=== PATIENT | male | born 1955 | race Caucasian/White ===

== ENCOUNTER 2018-09-27 08:42 | Outpatient (REF) | payer MEDICARE, SELFPAY ==
[2018-09-27 20:54] LABS: HGB 15.3 g/dL (13.5-17.5); Mean Corp. HGB Concentration 34.8 g/dL (32.0-36.0); Mean Corpuscular Hemoglobin 31.2 pg (27.0-33.0); Mean Corpuscular Volume 89.8 fL (80-95); Mean Platelet Volume 10.6 fL (8.0-11.0); Platelet Count 228 x1000/uL (130-400); RBC Distribution Width 13.1 % (11.8-14.1); White Blood Cell Count 5.09 k/cumm (4.4-10.8)
[2018-09-27 21:07] LABS: ALT 32 U/L (12-78); AST 16 U/L (15-37); Alkaline Phosphatase 111 U/L (46-116); Anion Gap 9.4 mmol/L (3-11); BUN 24 mg/dL (7-18); Bilirubin, Total 0.3 mg/dL (0.2-1.0); CO2 26.6 mmol/L (21.0-32.0); CREATININE 0.74 mg/dL (0.70-1.30); Calcium 9.2 mg/dL (8.5-10.1); Chloride 105 mmol/L (98-107); Glucose 93 mg/dL (70-100); PHENOBARBITAL 21.7 ug/mL (15.0-40.0); PHENYTOIN (DILANTIN) 10.7 ug/mL (10.0-20.0); Potassium 4.6 mmol/L (3.5-5.1); Sodium 141 mmol/L (136-145); Total Protein 7.1 g/dL (6.4-8.2)
== END 2018-09-27 09:02 ==
LOC: NCHCN 08:42
PROVIDERS: PCP Internal Medicine; Visit Provider Internal Medicine
DX: J45.30 Mild persistent asthma, uncomplicated (principal); I10 Essential (primary) hypertension; L82.1 Other seborrheic keratosis; R56.9 Unspecified convulsions; Z51.81 Encounter for therapeutic drug level monitoring; Z79.899 Other long term (current) drug therapy
CPT/HCPCS: 80053; 85027; 80184; 80185

== ENCOUNTER 2020-05-08 08:57 | Outpatient (REF) | payer MEDICARE, SELFPAY ==
[2020-05-08 21:53] LABS: Anion Gap 6.8 mmol/L (3-11); BUN 18 mg/dL (7-18); CO2 30.2 mmol/L (21.0-32.0); CREATININE 0.74 mg/dL (0.70-1.30); Calcium 8.9 mg/dL (8.5-10.1); Calculated LDL 100 mg/dL (<100); Chloride 101 mmol/L (98-107); Cholesterol 180 mg/dL (<200); Glucose 80 mg/dL (74-106); HDL Cholesterol 49 mg/dL (40-60); Sodium 138 mmol/L (136-145); TSH 2.34 uIU/mL (0.36-3.74); Triglyceride 155 mg/dL (<150)
[2020-05-21 11:31] LABS: PSA, Diagnostic 1.6 ng/ml (0-4.5)
== END 2020-05-08 09:17 ==
LOC: NCHCN 08:57
PROVIDERS: PCP Internal Medicine; Visit Provider Internal Medicine
DX: R63.5 Abnormal weight gain (principal); I10 Essential (primary) hypertension; I44.7 Left bundle-branch block, unspecified; A00-B99 Certain infectious and parasitic diseases
CPT/HCPCS: 80048; 80061; 84153; 84443

== ENCOUNTER 2021-04-14 21:25 | Outpatient (REF) | payer MEDICARE, SELFPAY ==
[2021-04-14 21:03] LABS: Abs Immature Grans 0.03 10^3/uL (0.0-0.06); Absolute Basophil Count 0.03 10^3/uL (0.0-0.2); Absolute Eosinophil Count 0.14 10^3/uL (0.0-0.7); Absolute Lymphocyte Count 2.27 10^3/uL (1.2-3.4); Absolute Neutrophil Count 3.65 10^3/uL (1.2-6.7); Basophils % 0.5; Eosinophils % 2.1; HCT 42.1 % (40.0-50.0); HGB 14.6 g/dL (13.5-17.5); Immature Grans % 0.5; Lymphocytes % 34.3; MCH 31.5 pg (27.0-33.0); MCHC 34.7 % (32.0-36.0); MCV 90.7 fL (80-95); Monocytes % 7.6; Nucleated RBC 0 %; Platelet Count 217 10^3/uL (130-400); RBC 4.64 10^6/uL (4.36-5.78); RDW 13.2 % (11.8-14.1); RDW-SD 43.1 fL; WBC 6.62 10^3/uL (4.4-10.8)
[2021-04-14 22:30] LABS: PHENYTOIN (DILANTIN) 10.5 ug/mL (10.0-20.0)
[2021-04-15 01:32] LABS: Vitamin D 25 Total 31.7 ng/mL (30-100)
[2021-04-15 06:46] LABS: ALT 38 U/L (16-63); AST 18 U/L (15-37); Albumin 3.9 g/dL (3.4-5.0); Alkaline Phosphatase 98 U/L (46-116); Anion Gap 10.1 mmol/L (3-11); BUN 18 mg/dL (7-18); Bilirubin, Total 0.3 mg/dL (0.2-1.0); CO2 24.9 mmol/L (21.0-32.0); CREATININE 0.9 mg/dL (0.70-1.30); Calcium 8.7 mg/dL (8.5-10.1); Chloride 104 mmol/L (98-107); Glucose 155 mg/dL (74-106); PHENOBARBITAL 20.8 ug/mL (15.0-40.0); Sodium 139 mmol/L (136-145)
== END 2021-04-14 21:26 | disposition home or self-care (01) ==
LOC: NCHCN 21:25
PROVIDERS: PCP Internal Medicine; Visit Provider Internal Medicine
DX: I10 Essential (primary) hypertension (principal); R56.9 Unspecified convulsions; Z51.81 Encounter for therapeutic drug level monitoring
CPT/HCPCS: 80053; 82306; 80184; 80185; 85025

== ENCOUNTER 2022-07-20 15:08 | Outpatient (REF) | payer MEDICARE, SELFPAY ==
[2022-07-20 21:36] LABS: HGB 14.6 g/dL (13.5-17.5); MCH 32.2 pg (27.0-33.0); MCHC 35.6 % (32.0-36.0); MCV 91 fL (80-95); MPV 10.8 fL (8.0-11.0); Platelet Count 223 10^3/uL (130-400); RBC 4.53 10^6/uL (4.36-5.78); RDW 12.8 % (11.8-14.1); RDW-SD 42.1 fL; WBC 6.29 10^3/uL (4.4-10.8)
[2022-07-20 22:16] LABS: Anion Gap 8.3 mmol/L (3-11); BUN 23 mg/dL (7-18); CO2 27.7 mmol/L (21.0-32.0); CREATININE 0.8 mg/dL (0.70-1.30); Calcium 8.9 mg/dL (8.5-10.1); Calculated LDL 72 mg/dL (<100); Chloride 103 mmol/L (98-107); Cholesterol 150 mg/dL (<200); Estimated GFR 98.21 (mL/min/1.73m2); Glucose 131 mg/dL (74-106); HDL Cholesterol 35 mg/dL (40-60); Sodium 139 mmol/L (136-145); Triglyceride 215 mg/dL (<150)
== END 2022-07-20 15:09 | disposition home or self-care (01) ==
LOC: NCHCN 15:08
PROVIDERS: PCP Internal Medicine; Visit Provider Internal Medicine
DX: I10 Essential (primary) hypertension (principal); Z51.81 Encounter for therapeutic drug level monitoring
CPT/HCPCS: 80048; 80061; 85027

== ENCOUNTER 2022-07-29 10:38 | Outpatient (REF) | payer MEDICARE, SELFPAY ==
--- OUTSIDE RECORDS SUMMARY | 2022-07-29 10:41 | XMS_ITS | CCD ---
:1955 Author Care Team Providers Name Role Phone JAYSHREE COHN Attending Physician Unavailable Vital Signs Vital Sign Value Unit Date/Time Recent/Initial? BP Systolic 157 mmHg 05/30/2022 09:19 Initial VS BP Diastolic 90 mmHg 05/30/2022 09:19 Initial VS Respiratory Rate 16 bpm 05/30/2022 09:19 Initial VS Heart Rate 56 bpm 05/30/2022 09:19 Initial VS O2 % BldC Oximetry 96 % 05/30/2022 09:19 Initi al VS Body Temperature 36.9 degrees 05/30/2022 09:19 Initial VS Allergies Unknown or Not Available. Procedures Procedure Code Procedure Type Date Colonoscopy, Flexible, Proximal To Splenic 04319 CPT 05/30/2022 Flexure; w/Bx, Single/Multiple History of Immunizations Immunization Code Date Td (adult), 5 Lf tetanus toxoid, preservative free, adsorbed 113 07/24/2022 Problems Unknown or Not Available. Results Unknown or Not Available. Active Medications Unknown or Not Available. Medications Administered During Visit Unknown or Not Available. Encounters Encounter Diagnosis Diagnosis Code Start Date Encounter for screening for malignant neoplasm of colon Z121 1 05/30/2022 Social History Smoking Status Code Start Date End Date Never smoker [id number] Patient Decision Aids Unknown or Not Available. Discharge Instructions You were admitted to [facility] on 05/30/2022 06:34 with a principal diagnosis of Encounter for screening for malignant neoplasm of colon You had the following procedures done: Colonoscopy, Flexible, Proximal To Splenic Flexure; w/Bx, Single/Multiple You were discharged from [facility] on 05/30/2022 09:35 Should you have any questions prior to d ischarge, please contact a member of your healthcare team. If you have left the ho spital and have any questions, please contact your primary care physician. Chief Complaint and Reason For Visit Unknown or Not Available. Function Status Unknown or Not Available. Plan of Care Unknown or Not Available. Referral/Transition of Care Unknown or Not Available.
--- OUTSIDE RECORDS SUMMARY | 2022-07-29 10:41 | XMS_ITS | CCD ---
:1955 Author Care Team Providers Name Role Phone JAYSHREE COHN Attending Physician Unavailable Vital Signs Unknown or Not Available. Allergies Unknown or Not Available. Procedures Unknown or Not Available. History of Immunizations Immunization Code Date Td (adult), 5 Lf tetanus toxoid, preservative free, adsorbed 113 07/24/2022 Problems Unknown or Not Available. Results [facility] COVID RHEONIX* - Collect Date/Helder e: 05/28/2022 09:32 Test Name Code Test Result Test Units Test Ref Range Tier- 01999-3 PRE-OP N/A SARS COV2 RNA: 49619-9 NEGATIVE N/A REFERENCE RAN GE: NEGAT Active Medications Unknown or Not Available. Medications Administered During Visit Unknown or Not Available. Encounters Encounter Diagnosis Diagnosis Code Start Date Pre-surgery testing [id number] 05/28/2022 Social History Smoking Status Code Start Date End Date Never smoker [id number] Patient Decision Aids Unknown or Not Available. Discharge Instructions You were admitted to [facility] on 05/28/2022 19:47 with a principal diagnosis of Encounter for preprocedural laborator y examination You had the following tests done: COPLE Y COVID RHEONIX* You were discharged from [facility] on 05/28/2022 19:47 Should you have any questions prior to d ischarge, please contact a member of your healthcare team. If you have left the spital and have any questions, please contact your primary care physician. Chief Complaint and Reason For Visit Unknown or Not Available. Function Status Unknown or Not Available. Plan of Care Unknown or Not Available. Referral/Transition of Care Unknown or Not Available.
--- OUTSIDE RECORDS SUMMARY | 2022-07-29 10:41 | XMS_ITS | CCD ---
:1955 Author Care Team Providers Name Role Phone TORI SHARMA Attending Physician Unavailable ARIEL WRIGHT Er Physician 1 Unavailable SAMANTHA Douglass Registered Nurse Unavailable DIAZ Mosley Registered Nurse Unavailable Vital Signs Vital Sign Value Unit Date/Time Recent/Initial? BMI (Body Mass Index) 30.19 kg/m^2 07/24/2022 17:08 In itial VS Weight Measured 248 lbs 07/24/2022 17:08 Initial VS Height 76 in 07/24/2022 17:08 Initial VS BSA (Body Surface Area) 2.46 m^2 07/24/2022 17:08 Initial VS BP Systolic 164 mmHg 07/24/2022 17:08 Initial VS BP Diastolic 94 mmHg 07/24/2022 17:08 Initial VS Respiratory Rate 20 bpm 07/24/2022 17:08 Initial VS Heart Rate 82 bpm 07/24/2022 17:08 Initial VS O2 % BldC Oximetry 100 % 07/24/2022 17:08 Initi al VS Body Temperature 37.3 degrees 07/24/2022 17:08 Initial VS BP Systolic 144 mmHg 07/24/2022 21:23 Most Recent VS BP Diastolic 80 mmHg 07/24/2022 21:23 Most Recent VS Respiratory Rate 22 bpm 07/24/2022 21:23 Most Re cent VS Heart Rate 80 bpm 07/24/2022 21:23 Most Recent VS O2 % BldC Oximetry 94 % 07/24/2022 21:23 Most Recent VS Allergies Allergy Code Allergy Type Reaction Status CODEINE 2670 Drug allergy Active Procedures Unknown or Not Available. History of Immunizations Immunization Code Date Td (adult), 5 Lf tetanus toxoid, preservative free, adsorbed 113 07/24/2022 Problems Unknown or Not Available. Results BNP (PRO-B NATRIURETIC PEPTIDE) - [facility] Date/Time: 07/24/2022 17:57 Test Name Code Test Result Test Units Test Ref Range NT-proBNP 98130-6 116.0 pg/mL L=0.0 H=125 COMPREHENSIVE METABOLIC PANEL (CMP) - Co llect Date/Time: 07/24/2022 17:57 Test Name Code Test Result Test Units Test Ref Range GLUCOSE 2345-7 100 mg/dL L=70 H=116 BUN 3094-0 22 mg/dL L=6 H=25 CREATININE 2160-0 0.84 mg/dL L=0.67 H=1.17 SODIUM SERUM 2951-2 136 mmol/L L=136 H=145 POTASSIUM SERUM 2823-3 3.6 mmol/L L=3.4 H=5.2 CHLORIDE SERUM 2075-0 99 mmol/L L=96 H=110 CARBON DIOXIDE (CO2) 2028-9 29 mmol/L L=22 H= 34 ANION GAP 30639-7 8.4 mmol/L CALCIUM SERUM 74196-4 8.9 mg/dL L=8.2 H=10.2 BILIRUBIN TOTAL 1975-2 0.4 mg/dL L=0.0 H=1.3 ALK. PHOS. 6768-6 122 U/L L=46 H=116 SGOT (AST) 1920-8 34 U/L L=15 H=37 SGPT (ALT) 1742-6 66 U/L L=12 H=78 TOTAL PROTEIN 2885-2 7.5 gm/dL L=6.0 H=8.0 ALBUMIN 1751-7 3.9 gm/dL L=3.4 H=5.0 AGE 67 years eGFR (non-Afr.Amer.) 00377-3 92 mL/min eGFR (Afr-Tuvaluan) 80490-6 111 mL/min TROPONIN HIGH SENSITIVITY* - Collect [place] e/Time: 07/24/2022 20:20 Test Name Code Test Result Test Units Test Ref Range TROPONIN HS 15.2 pg/mL L=0.0 H=60.4 Specimen seq. 3 HOUR N/A TROPONIN HIGH SENSITIVITY* - Collect Marshall e/Time: 07/24/2022 17:57 Test Name Code Test Result Test Units Test Ref Range TROPONIN HS 9.2 pg/mL L=0.0 H=60.4 Specimen seq. ADM. N/A CBC W/ DIFFERENTIAL* - Collect Date/Time : 07/24/2022 17:57 Test Name Code Test Result Test Units Test Ref Range WBC 6690-2 9.34 th/cmm L=5.00 H=10.00 NEUT % 67.8 % L=40.0 H=80.0 LYMPH % 20.7 % L=10.0 H=50.0 MONO % 97958-4 8.5 % L=2.0 H=12.0 EOS % 1.8 % L=0.0 H=8.0 BASO % 0.3 % L=0.0 H=3.0 IG % 2514-8 0.9 % L=0.0 H=1.1 NRBC % 45698-3 0.0 % L=0.0 H=0.0 NEUT abs count 751-8 6.3 th/cmm L=1.6 H=8.4 LYMPH abs count 731-0 1.9 th/cmm L=1.5 H=4.0 MONO abs count 742-7 0.8 th/cmm L=0.2 H=1.0 EOS abs count 711-2 0.2 th/cmm L=0.0 H=0.5 BASO abs count 704-7 0.0 th/cmm L=0.0 H=0.2 IG abs count 39633-3 0.1 th/cmm L=0.0 H=0.1 NRBC abs count 02273-7 0.0 mil/cmm L=0.0 H=0.0 RBC 789-8 4.67 mil/cmm L=4.30 H=6.20 HEMOGLOBIN 718-7 14.5 gm/dL L=13.0 H=17.0 HEMATOCRIT 4544-3 42 % L=45 H=52 MCV 787-2 90 fL L=82 H=92 MCH 785-6 31.0 pg L=27.0 H=31.0 MCHC 786-4 34.4 % L=32.0 H=36.0 RDW-SD 788-0 42.5 fL L=39.0 H=49.0 PLATELET COUNT 777-3 271 th/cmm L=150 H=450 PT PROTHROMBIN TIME* - Collect Date/Time : 07/24/2022 17:57 Test Name Code Test Result Test Units Test Ref Range PROTIME 5902-2 10.1 seconds L=9.3 H=11.4 INR 00189-5 1.01 L=2.00 H=3.00 PTT PARTIAL THROMBOPLASTIN TIME* - Colle ct Date/Time: 07/24/2022 17:57 Test Name Code Test Result Test Units Test Ref Range PTT 71656-3 24.0 seconds L=24.5 H=32.8 [facility] COVID FLU RSV GENEXPERT - Collect Date/Time: 07/24/2022 19:30 Test Name Code Test Result Test Units Test Ref Range COVID 72342-1 NEGATIVE N/A Normal: Negativ e INFLUENZA A DNA 40088-9 POSITIVE N/A Normal: Nega tive INFLUENZA B DNA 38733-0 NEGATIVE N/A Normal: Nega tive RSV DNA 61235-2 NEGATIVE N/A Normal: Negativ e Active Medications Unknown or Not Available. Medications Administered During Visit Medication Dose Units Frequency Route Date/Time of L ast Dose ACETAMINOPHEN INJ IVPB: 1000 MG X1 IVPB 0 07/24/2022 19:17 1000MG/100ML TETANUS/DIPTHERIA TOX SDV 0.5 ML X1 IM 07/24/2022 19:27 ADULT 0.5ML Encounters Unknown or Not Available. Social History Smoking Status Code Start Date End Date Never smoker [id number] Patient Decision Aids Unknown or Not Available. Discharge Instructions You were admitted to [facility] on 07/24/2022 16:57 You had the following tests done: TROPO EVETTE HIGH SENSITIVITY* [facility] COVID FLU RSV GENEXPERT BNP (PRO-B NATRIURETIC PEPTIDE ) CBC W/ DIFFERENTIAL* COMPREHENSIVE METABOLIC PANEL (CMP) PT PROTHROMBIN MAN E* PTT PARTIAL THROMBOPLASTIN TIME* TROPONIN HIGH SENSITIVITY* You were discharged from [facility] on 07/24/2022 21:52 Should you have any questions prior to d ischarge, please contact a member of your healthcare team. If you have left the spital and have any questions, please contact your primary care physician. Chief Complaint and Reason For Visit Chief Complaint Date of Onset HIT HEAD UNCONSCIOUSNESS; CORNER OF TRAILER HITCH, SOB Function Status Unknown or Not Available. Plan of Care Unknown or Not Available. Referral/Transition of Care Unknown or Not Available.
[2022-07-29 14:27] LABS: GGT 136 U/L (15-85)
[2022-07-29 14:57] LABS: Vitamin D 25 Total 25.9 ng/mL (30-100)
[2022-07-29 22:35] LABS: PSA, Screening 2.5 ng/mL (<=4.5)
[2022-08-01 09:05] LABS: Hepatitis C Ab w Rflx HCV PCR Negative (Negative)
== END 2022-07-29 10:39 | disposition home or self-care (01) ==
LOC: NCHCN 10:38
PROVIDERS: PCP Internal Medicine; Visit Provider Internal Medicine
DX: Z12.5 Encounter for screening for malignant neoplasm of prostate (principal); I44.7 Left bundle-branch block, unspecified; R55 Syncope and collapse; R74.8 Abnormal levels of other serum enzymes
CPT/HCPCS: 82306; 84153; 86803; 82977

== ENCOUNTER 2023-07-31 18:00 | Outpatient (REF) | payer MEDICARE, SELFPAY ==
[2023-07-31 22:13] LABS: HCT 43.2 % (40.0-50.0); HGB 14.9 g/dL (13.5-17.5); MCH 31.3 pg (27.0-33.0); MCHC 34.5 % (32.0-36.0); MCV 91 fL (80-95); Platelet Count 265 10^3/uL (130-400); RBC 4.76 10^6/uL (4.36-5.78); RDW 13.3 % (11.8-14.1); RDW-SD 44.2 fL; WBC 7.99 10^3/uL (4.4-10.8)
[2023-07-31 22:26] LABS: ALT 33 U/L (16-63); AST 24 U/L (15-37); Albumin 3.9 g/dL (3.4-5.0); Alkaline Phosphatase 81 U/L (46-116); Anion Gap 12.1 mmol/L (3-11); BUN 24 mg/dL (7-18); Bilirubin, Total 0.3 mg/dL (0.2-1.0); CO2 24.9 mmol/L (21.0-32.0); CREATININE 0.8 mg/dL (0.70-1.30); Calcium 9.3 mg/dL (8.5-10.1); Chloride 102 mmol/L (98-107); Estimated GFR 97.61 (mL/min/1.73m2); Glucose 98 mg/dL (74-106); Potassium 4.1 mmol/L (3.5-5.1); Sodium 139 mmol/L (136-145); Total Protein 7.7 g/dL (6.4-8.2)
[2023-07-31 22:44] LABS: Hemoglobin A1C 5.5 % (<5.7)
[2023-07-31 23:53] LABS: Vitamin D 25 Total 23.6 ng/mL (30-100)
== END 2023-07-31 18:01 | disposition home or self-care (01) ==
LOC: NCHCN 18:00
PROVIDERS: PCP Internal Medicine; Visit Provider Internal Medicine
DX: I10 Essential (primary) hypertension (principal); E55.9 Vitamin D deficiency, unspecified; I25.10 Atherosclerotic heart disease of native coronary artery without angina pectoris; R73.9 Hyperglycemia, unspecified
CPT/HCPCS: 80053; 82306; 85027; 83036

== ENCOUNTER 2024-09-06 16:19 | Outpatient (REF) | payer MEDICARE, SELFPAY ==
[2024-09-06 20:53] LABS: HCT 45.1 % (40.0-50.0); HGB 15.5 g/dL (13.5-17.5); MCH 31.1 pg (27.0-33.0); MCHC 34.4 % (32.0-36.0); MCV 91 fL (80-95); MPV 10.4 fL (8.0-11.0); Platelet Count 273 10^3/uL (130-400); RBC 4.98 10^6/uL (4.36-5.78); RDW 13.8 % (11.8-14.1); RDW-SD 45.8 fL; WBC 6.78 10^3/uL (4.4-10.8)
[2024-09-06 21:26] LABS: ALT 42 U/L (16-63); AST 31 U/L (15-37); Albumin 4.3 g/dL (3.4-5.0); Alkaline Phosphatase 117 U/L (46-116); BUN 22 mg/dL (7-18); Bilirubin, Total 0.73 mg/dL (0.2-1.0); CREATININE 0.9 mg/dL (0.70-1.30); Calcium 9.3 mg/dL (8.5-10.1); Calculated LDL 90 mg/dL (<100); Chloride 102 mmol/L (98-107); Cholesterol 161 mg/dL (<200); Estimated GFR 93.61 (mL/min/1.73m2); Glucose 97 mg/dL (74-106); HDL Cholesterol 55 mg/dL (>or=40); Potassium 3.9 mmol/L (3.5-5.1); Sodium 140 mmol/L (136-145); Total Protein 7.7 g/dL (6.4-8.2); Triglyceride 84 mg/dL (<150); Vitamin D 25 Total 35.4 ng/mL (30-100)
[2024-09-09 09:07] LABS: PSA, Screening 2.7 ng/mL (<=4.5)
== END 2024-09-06 16:20 | disposition home or self-care (01) ==
LOC: NCHCN 16:19
PROVIDERS: PCP Internal Medicine; Visit Provider Internal Medicine
DX: I10 Essential (primary) hypertension (principal); E55.9 Vitamin D deficiency, unspecified; N40.1 Benign prostatic hyperplasia with lower urinary tract symptoms
CPT/HCPCS: 80053; 80061; 82306; 84153; 85027